=== PATIENT | male | born 1995 | race Caucasian/White ===

== ENCOUNTER 2016-11-10 14:28 | Emergency (ER) | payer BC ==
[~2016-11-10] VITALS: Ht 193 cm; Wt 121.0 kg
[2016-11-10 14:30] VITALS: BP 132/76; PULSE 64; RESP 20; TEMP 97.9; O2SAT 95
[2016-11-10] MEDS ORDERED: CEPH-460 PO (16:10)
--- NOTE | 2016-11-10 16:11 | PD ---
HPI Chief Complaint: Wound/Suture/Staple Re-Check Time Seen by Provider: 16:07 Travel History International Travel<30 days: No Contact w/Intl Traveler<30days: No Traveled to known affect area: No History of Present Illness HPI 20-year-old male presents to the emergency department for evaluation of pilonidal cyst incision. Patient had a pilonidal cyst removed 3 weeks ago in [place]. He states that his mother want him to come in to have it checked looked at. He denies any worsening pain or worsening symptoms. He states he has Some Clear Drainage, but No Purulent Drainage. He Denies Any Fevers or Chills. Patient Reports No Chronic Medical Problems. He Currently Takes No Prescribed Medications. Patient Denies Any Other Complaints at This Time. [facility] Past Medical History Medical History: Denies Significant Hx Past Surgical History Other Surgery: Yes (PYLONIDAL CYST) Social History Alcohol Use: No Tobacco Use: Yes (CIGS) Substance Use: No Allergies-Medications (Allergen,Severity, Reaction): Coded Allergies: No Known Allergies (Unverified , 11/10/16) Review of Systems Except as stated in HPI: all other systems reviewed are Neg Physical Exam Narrative GENERAL: Well-developed well-nourished male patient, Ambulatory. Afebrile. SKIN: Warm and dry. Patient has well-healing pilonidal cyst incision. No purulent drainage. No surrounding erythema. HEAD: Normocephalic. Atraumatic. EYES: No scleral icterus. No injection or drainage. NECK: Supple, trachea midline. No JVD or lymphadenopathy. CARDIOVASCULAR: Regular rate and rhythm without murmurs, gallops, or rubs. RESPIRATORY: Breath sounds equal bilaterally. No accessory muscle use. Lungs sounds are clear to auscultation. GASTROINTESTINAL: Abdomen soft, non-tender, nondistended. MUSCULOSKELETAL: No cyanosis, or edema. Data Data Last Documented VS Vital Signs Date Time Temp Pulse Resp B/P Pulse Ox O2 Delivery O2 Flow Rate FiO2 11/10/16 14:30 97.9 64 20 132/76 95 Room Air MDM Medical Decision Making Medical Screen Exam Complete: Yes Emergency Medical Condition: Yes Medical Record Reviewed: Yes Differential Diagnosis Pilonidal cyst extraction versus cellulitis versus dehiscence Narrative Course 20-year-old male presents to emergency department requesting someone to look at the area where he had a pilonidal cyst removed. Overall, incision looks well. The patient is requesting antibiotic. Patient will be given a prescription for Keflex. He is to return for any worsening pain, drainage, fever, other worsening symptoms. He is agreeable. He is instructed on proper wound care. The patient was discharged in stable condition with instructions, including return instructions and follow up instructions. Diagnosis Primary Impression: Visit for wound check Patient Instructions: Acute Wound Care (ED), General Instructions Additional Instructions: Clean twice daily with soap and water and apply [id number] antibiotic ointment. Take antibiotic as directed until gone. Follow-up with your surgeon. Return to the emergency department for any acute worsening of symptoms. Med/Other Pt SpecificInfo: Prescription(s) given Scripts Cephalexin (Keflex)500 Mg [id number] Mg PO Q6H 7 Days Ref 0 Prov:Mar Xavier 11/10/16 Disposition: 01 DISCHARGE HOME Condition: Stable Mar Xavier Nov 10, 2016 16:11
== END 2016-11-10 16:36 | disposition home or self-care (01) ==
LOC: NEPB 14:28
DX: L05.91 Pilonidal cyst without abscess (principal); Z72.0 Tobacco use
CPT/HCPCS: 99281